=== PATIENT | female | born 1990 | race Asian ===

== ENCOUNTER 2020-10-03 22:50 | Inpatient (IN) | payer OTHER ==
[2020-10-03] MEDS ORDERED: LIDOCAINE 1% MPF 30 ML VIAL ONE (23:55)
[2020-10-03] MEDS ORDERED: METHYLERGONOVINE 0.2MG/ML AMP IM ONE (23:57)
[2020-10-04] MEDS ORDERED: OXYTOCIN/LR 20 UNIT/1,000 ML BAG IV ONE (00:03)
[2020-10-04] MEDS ORDERED: Ringers Lactate 1,000 ML IV PRN (00:14)
[2020-10-04] MEDS ORDERED: METHYLERGONOVINE 0.2MG/ML AMP IM PRN (00:14)
[2020-10-04] MEDS ORDERED: CARBOPROST TROME 250 MCG/ML IM PRN (00:14)
[2020-10-04] MEDS ORDERED: ACETAMINOPHEN 500 MG TAB PO PRN (00:20)
[2020-10-04] MEDS ORDERED: Oxycodone HCl/Acetaminophen 1 TAB TAB PO PRN ×2 (00:21→00:22)
[2020-10-04] MEDS: METHYLERGONOVINE 0.2 MG TAB PO PRN ×6 (00:40→21:00)
[2020-10-04] MEDS ORDERED: METHYLERGONOVINE 0.2 MG TAB PO ONE (00:48)
[2020-10-04] MEDS ORDERED: Ringers Lactate 1,000 ML IV SCH (01:00)
[2020-10-04] MEDS ORDERED: OXYTOCIN/LR 20 UNIT/1,000 ML BAG IV SCH (01:00)
[2020-10-04 01:43] LABS: Absolute Lymphocytes (CBC) 0.9 K/uL (0.7-4.9); Basophils % 0.3 % (0-1.3); Hematocrit 41.7 % (36.0-45.0); Lymphocytes % 4.5 % (15.3-44.8); MPV 8.7 fL (7.6-11.3); RBC Red Blood Cell Count 4.68 M/uL (3.86-4.86)
[2020-10-04] MEDS ORDERED: miSOPROStoL 100 MCG TAB PO PRN (01:54)
--- NOTE | 2020-10-04 02:01 | PREOPHP ---
Date of Admission: 10/04/2020 History Of Present Illness: 29-year-old 2, para 1, 38 weeks and 3 days, came in and delivery in our exam room precipitously. Has a history of retained placenta and blood transfusion with the f irst delivery. Placenta is completely intact. She has a small first to second-degree perineal lacer ation, very clean, infiltrated with local anesthetic and repaired with 2-0 chromic. Uterus mildly hy potonic, 0.2 mg of Methergine massage, IV drip Pitocin. Estimated blood loss 500 cc at this point. Uterus has contracted down well now. Inspection of the placenta shows it to be complete blood type, strep and other labs all pending at this point. Patient is quite stable. Family History: Noncontributory. Past Medical History: Significant for the retained placenta and blood transfusion with the first thayer. Physical Examination: General: Basically clear. HEENT: Clear. Pupils equal, round, reactive to light and accommodation. Conjunctivae well perfused . No oral, lingual, or buccal lesions. Chest and Lungs: Clear. Breasts: Not examined. Abdomen: Term. Baby is at least 7 pounds. Extremities: Clear without edema, cyanosis, or clubbing. Final Diagnosis: Term intrauterine , precipitous delivery. Patient is stable at this point . BENITO/JORGE Voice ID: [id number]
[2020-10-04 03:13] VITALS: BMI 30.9
--- NOTE | 2020-10-04 07:55 | DS ---
Hospital Course: 29-year-old 2, para 1, 38 weeks and 3 days, came in and precipitously deliv ered a 6-pound 14-ounce male , Apgars 9 and 9. Small second-degree laceration repaired with 2- 0 chromic under local infiltration. Noted to have hypotonus with Schultze delivery of the placenta, which was inspected and noted be completely intact. The patient has a history of retained placenta w ith the first , D and C, and blood transfusion. Her fundus is now very firm and bleeding is minimal. Initial blood pressures were in the 140 range, now in the 120 range. She has no complaint s or problems, is not taking any analgesics. She is we think Rh positive, immune to Rubella. Negati ve strep. All records will be obtained from the office when the office is open. Full instructions chrissy ivsven. She requests no analgesics. She has had her flu shot and offered Tdap shot before she leaves. She will be dismissed tomorrow morning. Burring Machine Operator is coming this morning, and she will talk to the felt cementer about the baby, but the baby looks fine. Estimated blood loss probably 500-550 cc. The patient though had a very good hematocrit on admission of around 42, encouraged to continue taki ng her vitamins. She is . Full discussion. Final Diagnoses: Intrauterine gestation, 38 weeks and 3 days, precipitous delivery. Mild uterine hy potonus. Tdap offered. Will be dismissed this evening or tomorrow morning. BENITO/JORGE Voice ID: [id number] Report ID: [id number]
[2020-10-04] MEDS ORDERED: miSOPROStoL 100 MCG TAB PO SCH (09:00)
[2020-10-04] MEDS: IBUPROFEN 600 MG TAB PO PRN (17:00)
[2020-10-04 21:18] LABS: RPR (Rapid Plasma Reagin) NON-REACT (NON-REACT)
[2020-10-05] MEDS: IBUPROFEN 600 MG TAB PO PRN (00:33)
[2020-10-05 08:10] VITALS: BP 127/85; TEMP 97.7
[2020-10-09 04:42] LABS: HBsAG Nonreactive (Nonreactive)
--- NOTE | 2020-10-14 08:54 | OP ---
Surgeon: Godfrey Green MD Indication And Procedure: A 29-year-old 2, para 1, 38 weeks 3 days, came and delivered preci pitously of a 6-pound 14-ounce male , Apgars 9 and 9. Small second-degree laceration repaired with 2-0 chromic under local infiltration. Uterus slightly hypotonic after Schultze delivery of the placenta. Placenta was inspected and noted to be intact and normal. Rh positive, immune to Rubella. Negative beta strep screen. Estimated blood loss 550 cc. Mild uterine hypotonus. Final Diagnoses: Intrauterine gestation, 38 weeks 3 days, precipitous delivery, mild uterine hypoton us. BENITO/JORGE Voice ID: [id number] Report ID: [id number]
== END 2020-10-05 10:20 | disposition home or self-care (01) | DRG 807 ==
LOC: L&D 22:50 → 2ND-WC 10-04 00:06
PROVIDERS: ADMIT Specialist; ATTEND Specialist
PROC: 10E0XZZ Delivery of Products of Conception, External Approach (ICD-10-PCS; principal; 2020-10-04)
PROC: 0KQM0ZZ Repair Perineum Muscle, Open Approach (ICD-10-PCS; 2020-10-04)
DX: O62.2 Other uterine inertia (principal); Z37.0 Single live birth; O70.1 Second degree perineal laceration during delivery; Z3A.38 38 weeks gestation of pregnancy
CPT/HCPCS: 36415; 85025; 86592; 86850; 86900; 86901; 87340; J2210; J2590; J7120